=== PATIENT | male | born 1970 | race Caucasian/White ===

== ENCOUNTER 2024-02-14 15:30 | Emergency (ER) | payer MEDICAID ==
[~2024-02-14] VITALS: Ht 165.1 cm; Wt 82.6 kg
[2024-02-14 15:49] VITALS: BP 138/74; PULSE 64; RESP 18; TEMP 98.4; O2SAT 96
[2024-02-14] MEDS ORDERED: IBUP-1842 PO (16:28)
[2024-02-14] MEDS: KETOROLAC 30 MG/ML VIAL IM ONE (16:46)
[2024-02-14 16:48] VITALS: BP 138/74; PULSE 64; RESP 18; TEMP 98.4; O2SAT 96
== END 2024-02-14 16:48 | disposition home or self-care (01) ==
LOC: MED 15:30
DX: S61.210A Laceration without foreign body of right index finger without damage to nail, initial encounter (principal); Z79.1 Long term (current) use of non-steroidal anti-inflammatories (NSAID); W26.0XXA Contact with knife, initial encounter; Y93.89 Activity, other specified; Y92.89 Other specified places as the place of occurrence of the external cause; Y99.8 Other external cause status
CPT/HCPCS: 96372; 99283; J1885